=== PATIENT | male | born 1960 | race African-American/Black ===

== ENCOUNTER → 2019-07-19 | Day surgery (SDC) | payer OTHER ==
[2019-07-16 12:11] LABS: BASOPHILS # (AUTO) 0.1 (0.0-0.1); BASOPHILS % 1.1 % (0.0-1.0); EOSINOPHILS # (AUTO) 0.3 (0.0-0.4); EOSINOPHILS % 3.3 % (0.0-6.0); HEMATOCRIT 41.1 % (38.2-49.6); HEMOGLOBIN 13.3 g/dL (14.0-18.0); LYMPHOCYTES # (AUTO) 2.8 (1.0-3.2); LYMPHOCYTES % 29.9 % (18.0-39.1); MEAN CORPUSCULAR HEMOGLOBIN 27.1 pg (28-32); MEAN CORPUSCULAR HGB CONC 32.4 g/dL (31-35); MEAN CORPUSCULAR VOLUME 83.9 fL (81-99); MONOCYTES # (AUTO) 0.8 (0.2-0.8); MONOCYTES % 8.5 % (4.4-11.3); NEUTROPHILS # (AUTO) 5.4 (2.1-6.9); PLATELET COUNT 306 x10e3/uL (140-360); RED CELL DISTRIBUTION WIDTH 13.2 % (11.7-14.4)
--- NOTE | 2019-07-16 12:14 | Diagnostic Imaging Report ---
EXAM: CHEST 2 VIEWS DATE: 07/16/2019 11:30 AM INDICATION: Preoperative evaluation COMPARISON: None FINDINGS: The post surgical changes from prior median sternotomy. The trachea is midline. The lungs are symmetrically expanded without evidence for large focal consolidation, pneumothorax, or significant pleural effusion. The cardiomediastinal silhouette is within normal limits. Atherosclerotic calcification are noted within the aortic arch. The pulmonary vasculature is not engorged. No acute osseous abnormality is identified. IMPRESSION: No acute cardiopulmonary process identified. Signed by: Dr. Cr Roberts MD on 07/16/2019 12:11 PM
[2019-07-16 12:30] LABS: ANION GAP 13.3 mmol/L (8-16); CREATININE, SERUM 3.62 mg/dL (0.72-1.25); POTASSIUM 5.3 mmol/L (3.5-5.1)
[~2019-07-19] MED LIST: AMLODIPINE BESY10 MG PO; ASPIR 8181 MG PO; ATENOLOL50 MG PO; CEFTRIAXONE SOD 1 GM/NS 50 ML 50 ML IV ONE; CLONIDINE HCL0.1 MG PO; ETOMIDATE 2 MG/ML 10 ML INJ IV ONE; GABAPENTIN100 MG PO; GLIMEPIRIDE4 MG PO; IOPAMIDOL 300MG/ML 50ML INFUS..BTL IV ONE; ISOSORBIDE MONO30 MG PO; LEVEMIR100 UNIT/1 SC; LIDOCAINE HCL 2% LOCAL INJ 5 ML SDV VIAL INJ ONE; LIDOCAINE JELLY 2% 10ML URO-JET ONE; LIPITOR10 MG PO; LOSARTAN POTAS100 MG PO; ONDANSETRON HCL INJ 2MG/ML 2ML 2 MG/ML VIAL ONE; PLAVIX75 MG PO; POTASSIUM CHLO10 ME1 PO; SEVOFLURANE INHAL SOLN 250 ML PEN BTL ONE; TRADJENTA5 MG PO; VASCEPA1 GM PO
--- OUTSIDE RECORDS SUMMARY | 2019-07-19 07:24 | XMS REPORT ---
Author Author [facility] Organization [facility] Address Unknown Phone Unavailable Care Team Providers Care Economics Faculty Member Name Role Phone BECKI GRANDA Unavailable Unavailable Problems This patient has no known problems. Allergies, Adverse Reactions, Alerts This patient has no known allergies or adverse reactions. Medications This patient has no known medications. Encounters Start Date/Time End Date/Time Encounter Type Admission Type Att[facility] Care Department Encounter ID 2018-06-28 05:48:00 2018-06-28 05:48:00 Outpatient [facility] [id number] 2018-06-01 17:55:00 2018-06-01 17:55:00 Emergency E [facility] [id number] Results Test Description Test Time Test Comments Text Results Atomic Results Result Comments CHEST 2 VIEWS 2019-07-16 12:10:00 [place] [address] Patient Name: CIPRIANO JIMENEZ MR #: [id number] : 1960 Age/Sex: 58/M Req #: [id number] Adm Physician: Ordered by: BECKI GRANDA MD Report #: [id number] Location: OR Room/Bed: Procedure: [id number] DX/CHEST 2 VIEWS Exam Date: 07/16/19 Exam Time: 1130 REPORT STATUS: Signed EXAM: CHEST 2 VIEWS DATE: 07/16/2019 11:30 AM INDICATION: Preoperative evaluation COMPARISON: None FINDINGS: The post surgical changes from prior median sternotomy. The trachea is midline. The lungs are symmetrically expanded without evidence for large focal consolidation, pneumothorax, or significant pleural effusion. The cardiomediastinal silhouette is within normal limits. Atherosclerotic calcification are noted within the aortic arch. The pulmonary vasculature is not engorged. No acute osseous abnormality is identified. IMPRESSION: No acute cardiopulmonary process identified. Signed by: Dr. Cr Roberts MD on 07/16/2019 12:11 PM Dictated By: CR ROBERTS MD 1211 Transcribed By: LEXUS on 07/16/19 121 COPY TO: BECKI GRANDA MD
[2019-07-19 10:19] VITALS: BP 184/89
--- NOTE | 2019-07-19 15:39 | Operative Report ---
DATE OF PROCEDURE: 07/19/2019 SURGEON: Yonathan Rowan MD PREOPERATIVE DIAGNOSIS: Hematuria. POSTOPERATIVE DIAGNOSIS: Hematuria with benign prostatic hypertrophy. PROCEDURES: 1. Cystourethroscopy with left ureteral catheterization and left retrograde pyelogram. 2. Cystourethroscopy with right ureteral catheterization and right retrograde pyelogram. 3. Supervision of fluoroscopy. 4. Interpretation of retrograde pyelography. ANESTHESIA: General. ESTIMATED BLOOD LOSS: Minimal. COMPLICATIONS: None. INDICATIONS FOR PROCEDURE: Mr. Morales is a very pleasant 58-year-old male with a history of recurrent microscopic hematuria. He and I had a long discussion of alternatives, risks, and benefits of doing nothing, cystoscopy, IVP, retrograde pyelograms, renal ultrasound. He elected to proceed. PROCEDURE IN DETAIL: After informed consent was obtained, the patient was taken to the operative suite, placed supine on the operating table. He underwent general anesthesia by Anesthesia Service, placed in dorsal lithotomy position, sterilely prepped and draped for cystoscopy. Flexible cystoscope was inserted per urethra after a rigid scope could not be passed. There was trilobar prostatic hypertrophy moderate trabeculation, no tumors, no stones both ureters were catheterized with 5-Austrian open-ended catheter, retrograde pyelogram was then performed revealing delicate ureter, delicate pelvocaliceal systems, air bubble filling defect obscuring the fluoroscopy. The bladder was drained. The patient was awakened from anesthesia and transferred to the recovery room in excellent condition. Supervision of fluoroscopy and interpretation of retrograde pyelography: I was present for the entire procedure and supervised fluoroscopy. There was no radiologist present. Bilateral retrograde pyelogram was performed revealing delicate ureters, delicate pelvocaliceal systems. Air bubble filling defect which cleared under fluoroscopy. Yonathan Rowan MD ES/MODL /[id number] MTDGiuliana
== END | disposition home or self-care (01) ==
LOC: OR 07:20
PROVIDERS: ATTEND Urology
DX: R31.9 Hematuria, unspecified (principal); N40.0 Benign prostatic hyperplasia without lower urinary tract symptoms; N32.89 Other specified disorders of bladder; E11.22 Type 2 diabetes mellitus with diabetic chronic kidney disease; I12.9 Hypertensive chronic kidney disease with stage 1 through stage 4 chronic kidney disease, or unspecified chronic kidney disease; N18.4 Chronic kidney disease, stage 4 (severe); I25.2 Old myocardial infarction; I25.810 Atherosclerosis of coronary artery bypass graft(s) without angina pectoris; R56.9 Unspecified convulsions; M19.90 Unspecified osteoarthritis, unspecified site; E78.5 Hyperlipidemia, unspecified; F17.210 Nicotine dependence, cigarettes, uncomplicated; Z01.810 Encounter for preprocedural cardiovascular examination; Z01.812 Encounter for preprocedural laboratory examination; Z01.818 Encounter for other preprocedural examination; Z11.59 Encounter for screening for other viral diseases; Z79.82 Long term (current) use of aspirin; Z79.84 Long term (current) use of oral hypoglycemic drugs; Z79.4 Long term (current) use of insulin; Z79.02 Long term (current) use of antithrombotics/antiplatelets; Z86.73 Personal history of transient ischemic attack (TIA), and cerebral infarction without residual deficits
CPT/HCPCS: 36415; 71046; 74420; 80048; 82948; 85025; 87635; 93005; C1758; J0696; J2001; J2405